=== PATIENT | female | born 1975 | race Caucasian/White ===

== ENCOUNTER → 2016-04-14 | Day surgery (SDC) | payer BC ==
[~2016-04-14] VITALS: Ht 172.7 cm; Wt 885.1 kg
[~2016-04-14] MED LIST: ACETAMINOPHEN 1000 MG/100 ML VIAL IV ONE; ACETAMINOPHEN/HYDROcodone 325 MG/5 MG TAB PO PRN; DEXAMETHASONE SOD PHOS 4 MG/ML VIAL ONE; DICLOFENAC SODIUM 37.5 MG/ML VIAL IV PUSH ONE; DO NOT ADM ANY ANTICOAGULANT DRUGS XX PRN; FAMOTIDINE 20 MG/2 ML VIAL ONE; INSULIN HUMAN REGULAR 1,000 UNITS/10 ML VIAL SQ PRN; LACTATED RINGER'S 1000 ML IV SCH; METOCLOPRAMIDE HCL 10 MG/2 ML VIAL ONE; METOPROLOL TARTRATE 25 MG TAB PO PRN; MIDAZOLAM HCL 2 MG/2 ML VIAL ONE; ONDANSETRON HCL 4 MG/2 ML VIAL IV PUSH ONE; PREN1TAB30 PO; PROPOFOL 200 MG/20 ML AMP IV ONE; SODIUM CHLORID 0.9% 500 ML IV SCH; [UNRECOGNIZED DRUG - REMARK] PO
[2016-04-14 12:38] VITALS: BP 152/91; PULSE 90; RESP 18; TEMP 98.1; O2SAT 100
[2016-04-14 13:04] LABS: BASOPHIL # 0.1 TH/MM3 (0-0.2); BASOPHIL % 0.6 % (0.0-2.0); EOSINOPHIL % 0.4 % (0.0-4.0); HEMATOCRIT 40.9 % (35.0-46.0); HEMO FLAGS DIFF FINAL; LYMPHOCYTE # 2.3 TH/MM3 (1.0-4.8); MEAN CELL VOLUME 87.1 FL (80.0-100.0); MEAN CORPUSCULAR HEMOGLOBIN 29.9 PG (27.0-34.0); MEAN CORPUSCULAR HGB CONC 34.3 % (32.0-36.0); MONO % 4.7 % (0.0-8.0); NEUT % 71.3 % (16.0-70.0); PLATELET COUNT 247 TH/MM3 (150-450); RED BLOOD COUNT 4.69 MIL/MM3 (4.00-5.30); WHITE BLOOD COUNT 9.8 TH/MM3 (4.0-11.0)
[2016-04-14 13:15] LABS: BACTERIA, URINE RARE /hpf; BLOOD, URINE MOD (NEG); COMMENT (UR) CULT NOT INDICATED; CULTURE IF INDICATED CULT NOT INDICATED; GLUCOSE,URINE NEG (NEG); KETONE, URINE NEG (NEG); NITRITE,URINE NEG (NEG); PH, URINE 7.5 (5.0-8.5); SQUAMOUS EPITHELIAL CELL URINE 1 /hpf (0-5); URINE COLOR LIGHT-YELLOW (YELLW/STRAW)
--- NOTE | 2016-04-17 08:57 | MP ---
cc: ARMANDO THOMAS DATE OF SURGERY 04/14/2016 PREOPERATIVE DIAGNOSIS Missed at 9 weeks. POSTOPERATIVE DIAGNOSIS Missed at 9 weeks. PROCEDURE Dilation and evacuation of the uterus. ANESTHESIA General. SURGEON Brandy Thomas MD FINDINGS On examination under anesthesia, the vagina was clean. The cervix had a small amount of blood in the os but was closed. the uterus was 8-10 weeks' size. The adnexa was negative for masses. Products of conception were normal in appearance. COMPLICATIONS None. COUNTS Correct. ESTIMATED BLOOD LOSS 100 cc. FLUIDS Crystalloids. CONDITION The patient tolerated the procedure well and went to the recovery room in good condition. OPERATION The patient was taken to the operating room, identified by name band and verbally, given a general anesthetic, prepped and draped in the usual sterile fashion for vaginal surgery. A time-out was taken and a weighted speculum was placed in the vagina. The anterior lip of the cervix was grasped with a single-tooth tenaculum after the exam under anesthesia was carried out. The cervix was serially dilated without difficulty and a #10 cannula was placed through the cervical os. The products of conception were removed from the uterus with gentle suction and a sharp curettage followed. The uterus was clean. She tolerated the procedure well and went to the recovery room in good condition. Brandy Thomas MD RJV/SSB /8:11 AM /8:52 AM
== END | disposition home or self-care (01) ==
LOC: HSDC 10:52
PROVIDERS: ATTEND Obstetrics & Gynecology
DX: O02.1 Missed abortion (principal)
CPT/HCPCS: 01965; 59820; 81001; 85025; 86900; 86901; 88305; J0131; J1100; J1130; J2250; J2405; J2765; J3010; J7120

== ENCOUNTER 2017-02-27 10:13 | Inpatient (IN) | payer BC ==
[2017-02-27] VITALS (32 sets, daily range): BP systolic 85–145; BP diastolic 38–88; PULSE 70–109; RESP 18–20; TEMP 97.4–98; O2SAT 98–100
[~2017-02-27] VITALS: Ht 152.4 cm; Wt 68.9 kg
[~2017-02-27 10:13] MED LIST changes: -ACETAMINOPHEN 1000 MG/100 ML VIAL IV ONE; -ACETAMINOPHEN/HYDROcodone 325 MG/5 MG TAB PO PRN; -DEXAMETHASONE SOD PHOS 4 MG/ML VIAL ONE; -DICLOFENAC SODIUM 37.5 MG/ML VIAL IV PUSH ONE; -DO NOT ADM ANY ANTICOAGULANT DRUGS XX PRN; -FAMOTIDINE 20 MG/2 ML VIAL ONE; -INSULIN HUMAN REGULAR 1,000 UNITS/10 ML VIAL SQ PRN; -LACTATED RINGER'S 1000 ML IV SCH; -METOCLOPRAMIDE HCL 10 MG/2 ML VIAL ONE; -METOPROLOL TARTRATE 25 MG TAB PO PRN; -MIDAZOLAM HCL 2 MG/2 ML VIAL ONE; -ONDANSETRON HCL 4 MG/2 ML VIAL IV PUSH ONE; -PROPOFOL 200 MG/20 ML AMP IV ONE; -SODIUM CHLORID 0.9% 500 ML IV SCH; -[UNRECOGNIZED DRUG - REMARK] PO
[2017-02-27] MEDS ORDERED: LACTATED RINGER'S 1000 ML INJ 1,000 ML IV PRN (10:53)
[2017-02-27] MEDS ORDERED: ONDANSETRON HCL 4 MG/2 ML VIAL IV PUSH PRN (11:00)
[2017-02-27] MEDS ORDERED: OXYTOCIN 30 UNITS-500ML PREMIX 500 ML IV ONE (11:00)
[2017-02-27] MEDS ORDERED: MINERAL OIL 10 ML VIAL TOPICAL PRN (11:00)
[2017-02-27] MEDS ORDERED: LIDOCAINE HCL 1% 50 ML VIAL I-DERMAL PRN (11:00)
[2017-02-27] MEDS ORDERED: CITRIC ACID-SODIUM CITRATE LIQ 30 ML UDC PO SCH (11:00)
[2017-02-27] MEDS ORDERED: LIDOCAINE HCL 1% 50 ML VIAL INFIL PRN (11:00)
[2017-02-27] MEDS ORDERED: SODIUM CHLORID 0.9% 500 ML INJ 500 ML IV PRN (11:00)
[2017-02-27] MEDS ORDERED: MISOPROSTOL 25 MCG SUPP VAGINAL ONE (11:00)
[2017-02-27] MEDS ORDERED: SODIUM CHLOR 0.9% 1000 ML INJ 1,000 ML IV PRN (11:13)
--- NOTE | 2017-02-27 11:16 | HHI.HP ---
History & Physical H&P HPI Chief Complaint Rupture of membranes Date Seen: Feb 27, 2017 Time Seen: 10:30 Travel History International Travel<30 Days: No Contact w/Intl Traveler<30Days: No Known Affected Area: No History of Present Illness HPI Ms. Dawson is a 41-year-old at 40 weeks and 3 days gestation presented OB ED with ruptured membranes. Patient was seen by Dr. Thomas this morning at roughly 9:45 and after checking her she had a gush of clear/mucous-like fluid. She presented to the OB ED and was Amnisure positive. Patient reports normal spotting, no changes in movement, and had no contractions prior to presentation. Otherwise patient has had no complications during this . She reports being GBS negative, and having no prior medical history before this . Denies fever, chills, shortness of breath, chest pain, dysuria, nausea vomiting, History (Limited) History Past Medical History Medical History: Denies Significant Hx Obstetric History Obstetric History Patient had an at age 21. Had a miscarriage in April 2016 Reports no complications during this Past Surgical History Surgical History: No Previous Surgery Family History Narrative Family History Polycystic kidney disease in mother No other medical problems Social History Narrative Social History Lives at home with her . Has had roughly 5 alcoholic beverages during the entire (well spaced out) Former smoker quit 9 years ago No illicit drug use Allergies-Medications Allergies-Medications (Allergen,Severity, Reaction): Coded Allergies: No Known Allergies (Unverified , 01/04/12) Home Meds Reported Medications Vit W/ Ferrous Fumara ( Vitamin 27-0.8 mg) 1 Tab Tab, 1 TAB PO DAILY 04/14/16 ROS Review of Systems Except as stated in HPI: all other systems reviewed are Neg Physical Exam Physical Exam Narrative GENERAL: Well-nourished, well-developed patient. SKIN: Warm and dry. HEAD: Normocephalic and atraumatic. EYES: No scleral icterus. No injection or drainage. ENT: No nasal drainage noted. Mucous membranes pink. Airway patent. NECK: Supple, trachea midline. No JVD. CARDIOVASCULAR: Regular rate and rhythm without murmurs, gallops, or rubs. RESPIRATORY: Breath sounds equal bilaterally. No accessory muscle use. ABDOMEN/GI: Abdomen soft, non-tender, bowel sounds present, no rebound, no guarding Gravid to 40 weeks size GENITOURINARY: External Genitalia: intact and normal in appearance Cervix: Midposition Dilatation: 1 cm Effacement: To percent Station: -1 Presentation: Cephalic Membranes: Ruptured Uterine Contractions: 3 contractions noted in a 30 minute period FHT's: Category: 1 Baseline: 140 Reactive: Yes Variability: Moderate Decels: Absent EXTREMITIES: No cyanosis or edema. BACK: Nontender without obvious deformity. No CVA tenderness. NEUROLOGICAL: Awake and alert. Motor and sensory grossly within normal limits. Five out of 5 muscle strength in all muscle groups. Normal speech. Data Data Data Orders Orders Ob (2e) Additional Admit Info (02/27/17 10:39) Admit To Inpatient (02/27/17 ) Code Status (02/27/17 10:53) Vital Signs (Adult) .Per protocol (02/27/17 10:53) Activity Oob Ad Danielle (02/27/17 10:53) Heart (02/27/17 10:53) Amnioinfusion (02/27/17 10:53) Urinary Catheter Management .ONCE (02/27/17 10:53) Diet Liquid (02/27/17 Lunch) Lactated Ringer's 1000 Ml Inj (Lr 1000 M (02/27/17 10:53) Lactated Ringer's 1000 Ml Inj (Lr 1000 M (02/27/17 10:53) Sodium Chlorid 0.9% 500 Ml Inj (Ns 500 M (02/27/17 11:00) Sodium Chlor 0.9% 1000 Ml Inj (Ns 1000 M (02/27/17 11:13) Lidocaine 1% Inj (50 Ml) (Xylocaine 1% I (02/27/17 11:00) Citric Acid-Sodium Citrate Liq (Bicitra (02/27/17 11:00) Ondansetron Inj (Zofran Inj) (02/27/17 11:00) Fentanyl Inj (Fentanyl Inj) (02/27/17 11:00) Fentanyl Inj (Fentanyl Inj) (02/27/17 11:00) Complete Blood Count With Diff (02/27/17 10:53) Hold Clot (02/27/17 10:53) Abo/Rh Blood Type (02/27/17 10:53) Urinalysis - C+S If Indicated (02/27/17 10:53) Drug Screen, Random Urine (02/27/17 10:53) Type And Screen (02/27/17 10:53) Resp Oxygen Non Rebreathe Mask (02/27/17 ) ^ Epidural / Intrathecal Infus (02/27/17 10:53) Oxytocin 30 Units-500ml Premix (Pitocin (02/27/17 11:00) Lidocaine 1% Inj (50 Ml) (Xylocaine 1% I (02/27/17 11:00) Light Mineral Oil (Muri-Lube Oil) (02/27/17 11:00) Inpatient Certification (02/27/17 ) Specimen To Be Collected PRN (02/27/17 10:53) Specimen To Be Collected PRN (02/27/17 10:53) Misoprostol Supp (Cytotec Supp) (02/27/17 11:00) Misoprostol Supp (Cytotec Supp) (02/27/17 15:00) MDM MDM Plan 41-year-old at 40 weeks and 3 days gestation followed by presenting to the ED with with rupture of membranes. Patient being admitted for impending labor and delivery 1. Rupture of membranes -Reported rupture at 0945 on the morning of 02/[address] Thomas office. -Amnisure positive on admission -Category 1 tracing on admission, will continue to monitor -Patient denying fevers or chills -GBS negative -Patient is 1 cm dilated, 20% effacement, -1 station -Spoke with Dr. Thomas's nurse who recommended Cytotec placement at this time -We will give Cytotec 25 g vaginal once now, and another dose in 4 hours if needed -Starting lactated Ringer's for IV fluids -Ordering CBC, UDS, UA Discussed with Dr. Silva Diagnosis Diagnosis: Primary Impression: Rupture of membranes with clear amniotic fluid Refugio Penny MD R1 Feb 27, 2017 11:15 Refugio Penny MD R1 Feb 27, 2017 11:15
[2017-02-27] MEDS: LACTATED RINGER'S 1000 ML INJ 1,000 ML IV SCH ×2 (12:19→19:36)
[2017-02-27 12:23] LABS: AUTOMATED NEUTROPHIL # 8.3 TH/MM3 (1.8-7.7); BASOPHIL % 0.2 % (0.0-2.0); EOSINOPHIL % 0.2 % (0.0-4.0); HEMATOCRIT 38.1 % (35.0-46.0); HEMO FLAGS DIFF FINAL; LYMPH % 12.3 % (9.0-44.0); LYMPHOCYTE # 1.3 TH/MM3 (1.0-4.8); MEAN CELL VOLUME 87.8 FL (80.0-100.0); MEAN CORPUSCULAR HEMOGLOBIN 29.6 PG (27.0-34.0); MEAN CORPUSCULAR HGB CONC 33.8 % (32.0-36.0); MONO % 6.5 % (0.0-8.0); NEUT % 80.8 % (16.0-70.0); PLATELET COUNT 118 TH/MM3 (150-450); RED BLOOD COUNT 4.34 MIL/MM3 (4.00-5.30); RED CELL DISTRIBUTION WIDTH 14.1 % (11.6-17.2); WHITE BLOOD COUNT 10.2 TH/MM3 (4.0-11.0)
[2017-02-27 12:32] LABS: BACTERIA, URINE MOD /hpf; BLOOD, URINE LARGE (NEG); COMMENT (UR) CULTURE INDICATED; CULTURE IF INDICATED CULTURE INDICATED; GLUCOSE,URINE NEG (NEG); KETONE, URINE NEG (NEG); MUCUS URINE FEW /lpf (OCC); NITRITE,URINE NEG (NEG); SQUAMOUS EPITHELIAL CELL URINE 32 /hpf (0-5); URINE COLOR LIGHT-YELLOW (YELLW/STRAW)
[2017-02-27] MEDS ORDERED: OXYTOCIN 30 UNITS-500ML PREMIX 500 ML IV SCH (13:45)
[2017-02-27] MEDS ORDERED: MISOPROSTOL 25 MCG SUPP VAGINAL PRN (15:00)
[2017-02-27] MEDS ORDERED: ePHEDrine/NS 25 MG/5 ML SYR ONE (20:49)
[2017-02-27] MEDS ORDERED: fentaNYL 2MCG-BUPIV 0.125% INJ 100 ML ONE (20:49)
[2017-02-27] MEDS ORDERED: MEPERIDINE HCL 50 MG/ML VIAL IV PUSH ONE (21:15)
[2017-02-27] MEDS ORDERED: DO NOT ADMINISTER ANTICOAGULANTS PRN (23:00)
[2017-02-27] MEDS ORDERED: NO SYSTEM NARCOTICS PRN (23:00)
[2017-02-27] MEDS ORDERED: ePHEDrine/NS 25 MG/5 ML SYR IV PUSH PRN (23:00)
[2017-02-28] VITALS (61 sets, daily range): BP systolic 94–151; BP diastolic 43–96; PULSE 70–109; RESP 15–22; TEMP 89–98; O2SAT 99–100
[2017-02-28] MEDS: fentaNYL 2MCG-BUPIV 0.125% 100 ML EPIDURAL SCH ×2 (00:07→04:47)
[2017-02-28] MEDS: LACTATED RINGER'S 1000 ML INJ 1,000 ML IV SCH (04:47)
[2017-02-28] MEDS ORDERED: ACETAMINOPHEN 1000 MG/100 ML 100 ML IV ONE ×2 (07:10→09:00)
[2017-02-28] MEDS ORDERED: DEXAMETHASONE SOD PHOS 4 MG/ML VIAL ONE (08:58)
[2017-02-28] MEDS ORDERED: ROPIVACAINE 0.5% PF INJ 30 ML VIAL ONE (08:58)
[2017-02-28] MEDS ORDERED: OXYTOCIN 30 UNITS-500ML PREMIX 500 ML IV ONE ×2 (09:00)
[2017-02-28] MEDS ORDERED: SODIUM CHLORIDE 0.9% FLUSH 10 ML FLUSH IV FLUSH PRN (09:00)
[2017-02-28] MEDS: SODIUM CHLORIDE 0.9% FLUSH 10 ML FLUSH IV FLUSH SCH ×2 (09:00→21:00)
[2017-02-28] MEDS ORDERED: oxyCODONE/ACETAMINOPHEN 5 MG/325 MG TAB PO PRN (09:00)
[2017-02-28] MEDS ORDERED: ONDANSETRON HCL 4 MG/2 ML VIAL IV PUSH PRN (10:00)
[2017-02-28] MEDS ORDERED: SIMETHICONE 80 MG CHEWABLE TAB PO PRN (10:00)
--- NOTE | 2017-02-28 11:25 | HHI.DCPOC ---
Discharge Care Plan Diagnosis: (1) S/P primary low transverse Your Health Problems Are: delivery Report Symptoms to Your Doctor -Temperature above 100.5 degrees -Redness, of incision or excessive or foul smelling drainage -Unusual pain or calf pain -Increased vaginal bleeding -Painful or difficulty urinating -Feelings of extreme sadness or anxiety after 2 weeks Goals to Promote Your Health * To prevent worsening of your condition and complications * To maintain your health at the optimal level Directions to Meet Your Goals Take your medications as prescribed Follow your dietary instruction Follow activity as directed Ensure plenty of rest for recovery Drink fluids for hydration Keep your appointments as scheduled Take your immunizations and boosters as scheduled If your symptoms worsen call your PCP, if no PCP go to Urgent Care Center or Emergency Room Smoking is Dangerous to Your Health. Avoid second hand smoke Call the 24-hour crisis hotline for domestic abuse at Cynthia Caputo Feb 28, 2017 11:25
[2017-02-28] MEDS ORDERED: LACTATED RINGER'S 1000 ML INJ 1,000 ML IV SCH (13:56)
--- NOTE | 2017-02-28 14:39 | PD.OB.DELI ---
Procedure Note Section Procedure Pre Op Diagnosis: (1) Arrest of descent, delivered, current hospitalization Post Op Diagnosis: (1) Arrest of descent, delivered, current hospitalization Performed by Marcus Thomas Procedure: Primary Low Transverse Sec Indication for delivery: Other Previous condition: None Informed consent obtained: For anesthesia, For procedure Confirmed correct: Patient, Procedure, Site, Time-out taken Anesthesia: Epidural Medication prior to procedure: As documented in eMAR Monitoring during procedure: Blood pressure monitoring Urinary catheter: Inserted using sterile technique Sterile preparation: Duraprep Position: Supine with wedge to left side Operative Features Skin Incision: Transverse Uterine Incision: Low transverse w/knife / blunt ext Membranes Ruptured: Previously Presentation: Occiput posterior Delivery date: Feb 28, 2017 Delivery time: 08:10 Delivery of infant: Assisted, Uneventful Infant: Male One Minute : 8 Five Minute : 9 Weight: 8/10 Status of : Viable, Cord blood Placenta delivered: Intact Medications: Antibiotics, Oxytocin Estimated blood loss: 500 Procedure tolerated: Well Maternal Condition: Stable Procedure in detail The patient was taken to the operating room. After appropriate level anesthesia , she was placed in the supine position. Intermittent compression hoses were placed. Wood catheter was placed, and was draining adequate clear urine. The abdomen was prepped, and draped in the usual sterile fashion. A transverse incision was made through the skin, and carried down through the subcutaneous tissue. The fascia was opened transversely. from the rectus muscles in the midline. The rectus muscles were , and the abdominal cavity was entered. The bladder flap was taken down transversely. A low segment transverse incision was made into the lower uterine segment. The vertex was then delivered. The remainder of the body was then delivered. Cord was doubly clamped and cut. And the handed off to the waiting nurse and staff. The placenta was then manually removed. The uterus was cleaned of excess blood and debris. The uterine incision was then closed using 0 vicryl in a continuous interlocking stitch. This stitch line was then imbricated also using 0 vicryl. Tubes and ovaries were inspected and found to be normal. The uterus which had been previously exteriorized, was placed back into the abdomen. The paracolic gutters were cleaned of excess blood and debris. The incision was inspected and found to be dry. The peritoneal cavity was then closed using 2-0 chromic suture. The muscle bed was inspected and found to be dry. The fascia was then closed using 0 Vicryl suture. The subcutaneous tissue was irrigated. Bleeders were controlled with Bovie. There was no active bleeding. The incision was then closed using in a subcuticular fashion with 4- 0 Monocryl. A dressing was applied. The patient was then transferred to the recovery room in stable condition. Brandy Thomas MD Feb 28, 2017 14:39
[2017-02-28] MEDS ORDERED: OXYC1TAB63 PO (15:36)
[2017-02-28] MEDS ORDERED: IBUP-232 PO (15:36)
[2017-02-28] MEDS ORDERED: OXYTOCIN 30 UNITS-500ML PREMIX 500 ML IV PRN (19:00)
[2017-02-28] MEDS ORDERED: ZOLPIDEM TARTRATE 5 MG TAB PO PRN (21:00)
[2017-02-28] MEDS: IBUPROFEN 600 MG TAB PO PRN (21:05)
[2017-03-01 00:30] VITALS: BP 135/79; PULSE 70; RESP 18; TEMP 98
[2017-03-01 02:01] VITALS: RESP 16
[2017-03-01] MEDS: IBUPROFEN 600 MG TAB PO PRN ×4 (05:18→22:12)
[2017-03-01 05:57] LABS: AUTOMATED NEUTROPHIL # 12.2 TH/MM3 (1.8-7.7); BASOPHIL % 0.1 % (0.0-2.0); EOSINOPHIL % 0.2 % (0.0-4.0); HEMATOCRIT 31.9 % (35.0-46.0); HEMO FLAGS DIFF FINAL; LYMPH % 11.2 % (9.0-44.0); LYMPHOCYTE # 1.6 TH/MM3 (1.0-4.8); MEAN CELL VOLUME 88.2 FL (80.0-100.0); MEAN CORPUSCULAR HEMOGLOBIN 30.3 PG (27.0-34.0); MEAN CORPUSCULAR HGB CONC 34.3 % (32.0-36.0); MONO % 5.5 % (0.0-8.0); PLATELET COUNT 111 TH/MM3 (150-450); RED BLOOD COUNT 3.62 MIL/MM3 (4.00-5.30); RED CELL DISTRIBUTION WIDTH 14.3 % (11.6-17.2); WHITE BLOOD COUNT 14.7 TH/MM3 (4.0-11.0)
[2017-03-01 08:30] VITALS: BP 138/82; PULSE 64; RESP 16; TEMP 97.9
--- NOTE | 2017-03-01 08:38 | HHI.OB ---
Subjective Post Operative Day: 1 Remarks s/p primary LTCD for arrest, healthy male Objective Vitals/I&O Vital Signs Date Time Temp Pulse Resp B/P (MAP) Pulse Ox O2 Delivery O2 Flow Rate FiO2 03/01/17 02:01 16 03/01/17 00:30 70 18 135/79 (97) 03/01/17 00:30 98.0 02/28/17 23:30 18 02/28/17 21:00 98.0 81 18 143/83 (103) 02/28/17 14:45 151/96 (114) 02/28/17 11:00 97.6 80 20 148/81 (103) 99 02/28/17 10:15 76 18 134/76 (95) 100 02/28/17 10:00 74 18 135/66 (89) 99 02/28/17 09:45 79 18 131/60 (83) 99 02/28/17 09:30 76 18 122/60 (80) 02/28/17 09:30 99 02/28/17 09:15 80 18 137/77 (97) 02/28/17 09:15 99 02/28/17 09:15 97.6 Result Diagram: 03/01/17 0552 Objective Remarks GENERAL: Well-nourished, well-developed patient. CARDIOVASCULAR: Regular rate and rhythm without murmurs, gallops, or rubs. RESPIRATORY: Breath sounds equal bilaterally. No accessory muscle use. ABDOMEN/GI: Abdomen soft, non-tender, bowel sounds present. Incision: Clean, dry and intact. bandage in place Fundus: Firm, non-tender at umbilicus. GENITOURINARY: Light to moderate bleeding. EXTREMITIES: No cyanosis or edema, non-tender, without signs of DVT. Medications and IVs Current Medications Medications (Trade) Dose Ordered Sig/Martin Route Start Time Stop Time Status Last Admin Lactated Ringer's 1,000 ml @ 100 mls/hr Q10H IV 02/28/17 13:56 03/01/17 09:55 02/28/17 16:13 Oxytocin 500 ml @ 100 mls/hr UNSCH X1 PRN IV 02/28/17 19:00 03/01/17 18:59 (NS Flush) 2 ml BID IV FLUSH 02/28/17 09:00 (NS Flush) 2 ml UNSCH PRN IV FLUSH 02/28/17 09:00 (Mylicon Chew) 80 mg QID PRN PO 02/28/17 10:00 (Motrin) 600 mg Q6H PRN PO 02/28/17 09:00 03/01/17 05:18 (Percocet 5-325 Mg) 1 tab Q4H PRN PO 02/28/17 09:00 (Percocet 5-325 Mg) 2 tab Q4H PRN PO 02/28/17 09:00 (Maria Victoria-Colace) 2 tab Q12HR PRN PO 02/28/17 10:00 (Ambien) 5 mg HS PRN PO 02/28/17 21:00 (M-M-R Ii Inj) 0.5 ml ONCE ONCE SQ 03/01/17 16:00 03/01/17 16:01 (Boostrix Inj) 0.5 ml ONCE ONCE IM 03/01/17 16:00 03/01/17 16:01 02/28/17 21:10 (Zofran Inj) 4 mg Q6H PRN IV PUSH 02/28/17 10:00 Non-Formulary Medication 1 tab DAILY PO 02/28/17 09:00 UNV Assessment/Plan Problem List: (1) S/P primary low transverse ICD Codes: Z98.891 - History of uterine scar from previous surgery Status: Acute (2) Arrest of descent, delivered, current hospitalization 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
[2017-03-01] MEDS ORDERED: PERI PO (08:39)
[2017-03-01] MEDS: DOCUSATE SODIUM 50 MG/SENNA 8.6 MG TAB PO PRN (10:38)
[2017-03-01] MEDS: PRENATAL VITAMIN CHEWABLE TAB PO SCH (10:38)
[2017-03-01] MEDS: oxyCODONE/ACETAMINOPHEN 5 MG/325 MG TAB PO PRN ×3 (10:39→22:12)
[2017-03-01] MEDS ORDERED: MEASLES, MUMPS, RUBELLA VACCINE 0.5 ML VIAL SQ ONE (16:00)
[2017-03-01] MEDS ORDERED: DIPHTH/TETANUS/ACEL PERTUSSIS (BOOSTER) 0.5 ML VIAL/PFS IM ONE (16:00)
[2017-03-01 21:30] VITALS: BP 148/96; PULSE 77; RESP 20; TEMP 98.2
[2017-03-02] MEDS: IBUPROFEN 600 MG TAB PO PRN (04:29)
[2017-03-02] MEDS: oxyCODONE/ACETAMINOPHEN 5 MG/325 MG TAB PO PRN ×2 (04:30→08:41)
--- NOTE | 2017-03-02 08:04 | HHI.OB ---
Subjective Post Operative Day: 2 Objective Vitals/I&O Vital Signs Date Time Temp Pulse Resp B/P (MAP) Pulse Ox O2 Delivery O2 Flow Rate FiO2 03/01/17 21:30 98.2 77 20 148/96 (113) 03/01/17 11:39 16 03/01/17 11:39 16 03/01/17 08:30 97.9 64 16 138/82 (100) Result Diagram: 03/01/17 0552 Objective Remarks GENERAL: Well-nourished, well-developed patient. CARDIOVASCULAR: Regular rate and rhythm without murmurs, gallops, or rubs. RESPIRATORY: Breath sounds equal bilaterally. No accessory muscle use. ABDOMEN/GI: Abdomen soft, non-tender, bowel sounds present. Incision: Clean, dry and intact. Fundus: Firm, non-tender at umbilicus. GENITOURINARY: Light bleeding. EXTREMITIES: No cyanosis or edema, non-tender, without signs of DVT. Medications and IVs Current Medications Medications (Trade) Dose Ordered Sig/Martin Route Start Time Stop Time Status Last Admin (NS Flush) 2 ml BID IV FLUSH 02/28/17 09:00 (NS Flush) 2 ml UNSCH PRN IV FLUSH 02/28/17 09:00 (Mylicon Chew) 80 mg QID PRN PO 02/28/17 10:00 (Motrin) 600 mg Q6H PRN PO 02/28/17 09:00 03/02/17 04:29 (Percocet 5-325 Mg) 1 tab Q4H PRN PO 02/28/17 09:00 03/02/17 04:30 (Percocet 5-325 Mg) 2 tab Q4H PRN PO 02/28/17 09:00 (Maria Victoria-Colace) 2 tab Q12HR PRN PO 02/28/17 10:00 03/01/17 10:38 (Ambien) 5 mg HS PRN PO 02/28/17 21:00 (Zofran Inj) 4 mg Q6H PRN IV PUSH 02/28/17 10:00 Non-Formulary Medication 1 tab DAILY PO 02/28/17 09:00 UNV Assessment/Plan Problem List: (1) S/P primary low transverse ICD Codes: Z98.891 - History of uterine scar from previous surgery Status: Acute (2) Arrest of descent, delivered, current hospitalization 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 Thomas; will call office Sunday d/c to home Discharge Planning routine Ami Jimenez MD Mar 02, 2017 08:04
[2017-03-02] MEDS: PRENATAL VITAMIN CHEWABLE TAB PO SCH (08:40)
[2017-03-02] MEDS: DOCUSATE SODIUM 50 MG/SENNA 8.6 MG TAB PO PRN (08:41)
== END 2017-03-02 11:54 | disposition home or self-care (01) | DRG 766 ==
LOC: HOBED 10:13 → H2EB 10:42 → H1EA 02-28 10:55
PROVIDERS: ADMIT Obstetrics & Gynecology; ATTEND Obstetrics & Gynecology
PROC: 10D00Z1 Extraction of Products of Conception, Low, Open Approach (ICD-10-PCS; principal; 2017-02-27)
PROC: 3E0R3BZ Introduction of Anesthetic Agent into Spinal Canal, Percutaneous Approach (ICD-10-PCS; 2017-02-27)
PROC: 00HU33Z Insertion of Infusion Device into Spinal Canal, Percutaneous Approach (ICD-10-PCS; 2017-02-27)
DX: O62.1 Secondary uterine inertia (principal); Z87.891 Personal history of nicotine dependence; Z37.0 Single live birth; Z3A.40 40 weeks gestation of pregnancy
CPT/HCPCS: 59025; 80307; 81001; 84112; 85025; 86850; 86900; 86901; 87086; 90715; J0131; J0690; J1100; J2175; J2405; J2590; J2795; J3010; J7120

== ENCOUNTER 2017-03-07 14:38 | Observation (INO) | payer BC ==
[~2017-03-07] VITALS: Ht 172.7 cm; Wt 92.0 kg
[~2017-03-07 14:38] MED LIST changes: +IBUP-232 PO; +OXYC1TAB63 PO; +PERI PO
[2017-03-07] MEDS ORDERED: SODIUM CHLORIDE 0.9% FLUSH 10 ML FLUSH IV FLUSH PRN (15:00)
[2017-03-07] MEDS ORDERED: ONDANSETRON HCL 4 MG/2 ML VIAL IV PUSH PRN (15:00)
[2017-03-07] MEDS ORDERED: MAGNESIUM SULFATE 4 GM PREMIX 100 ML IV ONE (15:00)
[2017-03-07] MEDS ORDERED: CALCIUM GLUCONATE 10% 1 GM/10 ML VIAL IV PUSH PRN (15:00)
[2017-03-07] MEDS ORDERED: LABETALOL HCL 100 MG/20 ML VIAL IV PUSH PRN ×2 (15:00→15:15)
--- NOTE | 2017-03-07 15:22 | HHI.HP ---
HPI Chief Complaint Postop and severe hypertension Date Seen: Mar 07, 2017 Time Seen: 15:40 Travel History International Travel<30 Days: No Contact w/Intl Traveler<30Days: No Known Affected Area: No History of Present Illness HPI Patient is 41-year-old white female A2 who is one-week status post a C- section by Dr. Thomas for arrest of descent and had a normal postoperative and course her last blood pressure on her discharge day was 146/92 but otherwise all her blood pressures within normal limits and she has no history of hypertension prior to or during her , however today she presents to Dr. Thomas's office with a blood pressure in the 180s/110s she has no headache blurry vision spots in front of her eyes right upper quadrant pain and her swelling she had her legs is better now than it was when she was in the hospital Para: 1 : 3 Last Menstrual Period: Mar 07, 2017 Miscarriage: 2 : 0 History Past Medical History Narrative Medical Patient has a negative medical history no history of hypertension and thyroid disease diabetes Obstetric History Obstetric History 2 early losses and one with [address] Thomas Past Surgical History Narrative Surgical Family History Family History: Social History Alcohol Use: Yes Tobacco Use: No Substance Abuse: No Allergies-Medications (Allergen,Severity, Reaction): Coded Allergies: No Known Allergies (Unverified , 01/04/12) Home Meds Active Scripts Sennosides-Docusate Sodium (Gnp Senna Plus 8.6-50 mg) 8.6 Mg-50 Mg Tab, 1 TAB PO Q12HR Y for CONSTIPATION, #20 TAB 1 Refill Prov:Ami Jimenez MD 03/01/17 Oxycodone HCl/Acetaminophen (Oxycodone-Acetaminophen 5-325) 5 Mg-325 Mg Tablet, 1-2 TAB PO Q4H Y for moderate pain, #30 TAB Prov:Brandy Thomas MD 02/28/17 Ibuprofen (Ibuprofen) 600 Mg Tab, 600 MG PO Q6H Y for CRAMPING, #30 TAB Prov:Brandy Thomas MD 02/28/17 Reported Medications Vit W/ Ferrous Fumara ( Vitamin 27-0.8 mg) 1 Tab Tab, 1 TAB PO DAILY 04/14/16 Review of Systems General / Constitutional: No: Fever, Weight Gain, Chills, Other Eyes: No: Diploplia, Blurred Vision, Visual changes, Pain, Photophobia HENT: No: Headaches, Vertigo, Lightheadedness Cardiovascular: No: Irregular Rhythm, Chest Pain or Discomfort, Palpitations, Tachycardia, Syncope, Varicosities, Edema, Cyanosis Respiratory: No: Cough, Short of Breath, Other Gastrointestinal: No: Nausea, Vomiting, Diarrhea Genitourinary: No: Decreased Urinary Output, Oliguria Musculoskeletal: No: Limited ROM, Weakness, Cramping, Edema, Pain Skin: No Rash, No Itching, No Dryness, No Lumps, No Change in Pigmentation, No Change in Nails, No Alopecia, No Lesions Neurologic: No: Weakness, Dizziness, Syncope, Focal Abnormalities, Coordination Problem, Headache, Slurred Speech, Seizures Psychiatric: No: Depression, Suicidal Ideations, Homicidal Ideation Endocrine: No: Heat Intolerance, Cold Intolerance, Polydipsia, Polyuria, Other Physical Exam Narrative GENERAL: Well-nourished, well-developed patient. SKIN: Warm and dry. HEAD: Normocephalic and atraumatic. EYES: No scleral icterus. No injection or drainage. ENT: No nasal drainage noted. Mucous membranes pink. Airway patent. NECK: Supple, trachea midline. No JVD. No goiter CARDIOVASCULAR: Regular rate and rhythm without murmurs, gallops, or rubs. RESPIRATORY: Breath sounds equal bilaterally. No accessory muscle use. BREASTS: Bilateral exam showed no masses , no retractions, no nipple discharge. ABD--non tender nondistended normal bowel sounds noted C section incision well -healed EXTREMITIES: No cyanosis or edema. BACK: Nontender without obvious deformity. No CVA tenderness. NEUROLOGICAL: Awake and alert. Motor and sensory grossly within normal limits. Five out of 5 muscle strength in all muscle groups. Normal speech. DTRs 2+ Caprini VTE Risk Assessment Caprini VTE Risk Assessment: No/Low Risk (score <= 1) Caprini Risk Assessment Model Point Value = 1 Point Value = 2 Point Value = 3 Point Value = 5 Age 41-60 Minor surgery BMI > 25 kg/m2 Swollen legs Varicose veins or History of unexplained or recurrent spontaneous Oral contraceptives or hormone replacement Sepsis (< 1 month) Serious lung disease, including pneumonia (< 1 month) Abnormal pulmonary function Acute myocardial infarction Congestive heart failure (< 1 month) History of inflammatory bowel disease Medical patient at bed rest Age 61-74 Arthroscopic surgery Major open surgery (> 45 min) Laparoscopic surgery (> 45 min) Malignancy Confined to bed (> 72 hours) Immobilizing plaster cast Central venous access Age >= 75 History of VTE Family history of VTE Factor V Leiden Prothrombin [id number] Lupus anticoagulant Anticardiolipin antibodies Elevated serum homocysteine Heparin-induced thrombocytopenia Other congenital or acquired thrombophilia Stroke (< 1 month) Elective arthroplasty Hip, pelvis, or leg fracture Acute spinal cord injury (< 1 month) Prophylaxis Regimen Total Risk Factor Score Risk Level Prophylaxis Regimen 0-1 Low Early ambulation 2 Moderate Order ONE of the following: *Sequential Compression Device (SCD) *Heparin 5000 units SQ BID 3-4 Higher Order ONE of the following medications: *Heparin 5000 units SQ TID *Enoxaparin/Lovenox 40 mg SQ daily (WT < 150 kg, CrCl > 30 mL/min) *Enoxaparin/Lovenox 30 mg SQ daily (WT < 150 kg, CrCl > 10-29 mL/min) *Enoxaparin/Lovenox 30 mg SQ BID (WT < 150 kg, CrCl > 30 mL/min) AND/OR *Sequential Compression Device (SCD) 5 or more Highest Order ONE of the following medications: *Heparin 5000 units SQ TID (Preferred with Epidurals) *Enoxaparin/Lovenox 40 mg SQ daily (WT < 150 kg, CrCl > 30 mL/min) *Enoxaparin/Lovenox 30 mg SQ daily (WT < 150 kg, CrCl > 10-29 mL/min) *Enoxaparin/Lovenox 30 mg SQ BID (WT < 150 kg, CrCl > 30 mL/min) AND *Sequential Compression Device (SCD) Data Data Orders Orders Place In Observation (03/07/17 ) Activity Bed Rest (03/07/17 14:56) Intake + Output Q1H (03/07/17 14:56) Notify Dr. Cleary (03/07/17 14:56) Urinary Catheter Management YOGESH.Q8H (03/07/17 14:56) ^ Check Deep Tendon Reflexes Q1H (03/07/17 14:56) Lactated Ringer's 1000 Ml Inj (Lr 1000 M (03/07/17 14:56) Sodium Chloride 0.9% Flush (Ns Flush) (03/07/17 15:00) Sodium Chloride 0.9% Flush (Ns Flush) (03/07/17 21:00) Magnesium Sulfate 40 Gm Premix (Magnesiu (03/07/17 14:56) Labetalol Inj (Trandate Inj) (03/07/17 15:00) Labetalol Inj (Trandate Inj) (03/07/17 15:15) Calcium Gluconate Inj (Calcium Gluconate (03/07/17 15:00) Acetaminophen (Tylenol) (03/07/17 15:00) Ondansetron Inj (Zofran Inj) (03/07/17 15:00) Cbc No Diff, Includes Plts (03/07/17 14:56) Comprehensive Metabolic Panel (03/07/17 14:56) Uric Acid (03/07/17 14:56) Urinalysis - C+S If Indicated (03/07/17 14:56) Magnesium Sulfate 4 Gm Premix (Magnesium (03/07/17 15:00) Assessment/Plan Assessment and Plan 41-year-old white female A2 1 week out from the section Dr. Thomas for arrest of descent presents now with postoperative severe hypertension and the patient is no history of hypertensive disease in or out of . Her blood pressures in the 170-180/100 110 range in the emergency room doctor Sugey office and here on OB ED she has no other signs or symptoms of preeclampsia Impression--severe hypertension postop/ Plan--admit and begin the severe hypertensive for protocol with IV magnesium, we 'll draw PIH labs and urinalysis, and begin antihypertensive medication Rey Faust II, MD Mar 07, 2017 15:21
[2017-03-07] MEDS ORDERED: FUROSEMIDE 20 MG/2 ML VIAL IV PUSH ONE (16:15)
[2017-03-07 16:29] LABS: HEMATOCRIT 35.9 % (35.0-46.0); MEAN CELL VOLUME 88.9 FL (80.0-100.0); MEAN CORPUSCULAR HEMOGLOBIN 29.2 PG (27.0-34.0); MEAN CORPUSCULAR HGB CONC 32.8 % (32.0-36.0); PLATELET COUNT 302 TH/MM3 (150-450); RED BLOOD COUNT 4.03 MIL/MM3 (4.00-5.30); RED CELL DISTRIBUTION WIDTH 14.3 % (11.6-17.2); REVIEW FLAG FINAL; WHITE BLOOD COUNT 9.2 TH/MM3 (4.0-11.0)
[2017-03-07] MEDS: LACTATED RINGER'S 1000 ML INJ 1,000 ML IV SCH (16:38)
[2017-03-07] MEDS: MAGNESIUM SULFATE 40 GM PREMIX 1,000 ML IV SCH (16:39)
[2017-03-07 16:55] LABS: ALT (GPT) 46 U/L (10-53); ANION GAP 8 MEQ/L (5-15); AST (GOT) 26 U/L (15-37); BICARBONATE 27.2 MEQ/L (21.0-32.0); BLOOD UREA NITROGEN 12 MG/DL (7-18); CHLORIDE 105 MEQ/L (98-107); GLOMERULAR FILTRATION RATE 73 ML/MIN (>89); POTASSIUM 4.5 MEQ/L (3.5-5.1); SODIUM (NA) 140 MEQ/L (136-145); URIC ACID 8.6 MG/DL (2.6-6.0)
[2017-03-07 16:57] LABS: ALKALINE PHOSPHATASE 123 U/L (45-117); TOTAL BILIRUBIN ADULT 0.2 MG/DL (0.2-1.0)
[2017-03-07] MEDS ORDERED: LABETALOL HCL 100 MG/20 ML VIAL ONE (17:10)
[2017-03-07] MEDS ORDERED: NIFEdipine 30 MG SUSTAINED RELEASE TAB PO ONE (17:30)
[2017-03-07] MEDS ORDERED: ZOLPIDEM TARTRATE 5 MG TAB PO PRN (17:30)
[2017-03-07 17:56] LABS: BLOOD, URINE NEG (NEG); COMMENT (UR) CULT NOT INDICATED; CULTURE IF INDICATED CULT NOT INDICATED; GLUCOSE,URINE NEG (NEG); KETONE, URINE NEG (NEG); NITRITE,URINE NEG (NEG); URINE COLOR LIGHT-YELLOW (YELLW/STRAW)
[2017-03-07] MEDS ORDERED: LABETALOL HCL 100 MG/20 ML VIAL IV PUSH ONE ×2 (18:15)
[2017-03-07] MEDS ORDERED: IBUPROFEN 600 MG TAB PO PRN (18:45)
[2017-03-07] MEDS: SODIUM CHLORIDE 0.9% FLUSH 10 ML FLUSH IV FLUSH SCH (21:00)
[2017-03-07] MEDS: ACETAMINOPHEN 325 MG TAB PO PRN (21:54)
[2017-03-08] MEDS: ACETAMINOPHEN 325 MG TAB PO PRN ×2 (08:35→14:35)
[2017-03-08] MEDS: LACTATED RINGER'S 1000 ML INJ 1,000 ML IV SCH (08:36)
[2017-03-08] MEDS: NIFEdipine 30 MG SUSTAINED RELEASE TAB PO SCH ×2 (08:36→09:00)
[2017-03-08] MEDS: SODIUM CHLORIDE 0.9% FLUSH 10 ML FLUSH IV FLUSH SCH (08:36)
--- NOTE | 2017-03-08 12:28 | HHI.OB ---
Subjective Remarks PT DELIVERY BY PRIMARY C SECTION APPROX 1 WEEK AGO Objective Objective Remarks GENERAL: Well-nourished, well-developed patient. CARDIOVASCULAR: Regular rate and rhythm without murmurs, gallops, or rubs. RESPIRATORY: Breath sounds equal bilaterally. No accessory muscle use. ABDOMEN/GI: Abdomen soft, non-tender, healing c section scar small area of bruising above incision . . GENITOURINARY: Light bleeding., [place] to bsd EXTREMITIES: No cyanosis, slight bilateral lower extremity edema, non-tender, without signs of DVT. Medications and IVs Current Medications Medications (Trade) Dose Ordered Sig/Martin Route Start Time Stop Time Status Last Admin Lactated Ringer's 1,000 ml @ 75 mls/hr [id number] IV 03/07/17 14:56 03/08/17 08:36 (NS Flush) 2 ml UNSCH PRN IV FLUSH 03/07/17 15:00 (NS Flush) 2 ml BID IV FLUSH 03/07/17 21:00 Magnesium Sulfate 1,000 ml @ 50 mls/hr Q20H IV 03/07/17 14:56 03/07/17 16:39 (Calcium Gluconate Inj) 1 gm UNSCH PRN IV PUSH 03/07/17 15:00 (Tylenol) 650 mg Q4H PRN PO 03/07/17 15:00 03/08/17 08:35 (Zofran Inj) 4 mg Q6H PRN IV PUSH 03/07/17 15:00 (Ambien) 5 mg HS PRN PO 03/07/17 17:30 (Motrin) 600 mg Q6H PRN PO 03/07/17 18:45 (Procardia Xl) 30 mg DAILY PO 03/08/17 09:00 Assessment/Plan Problem List: (1) S/P primary low transverse ICD Codes: Z98.891 - History of uterine scar from previous surgery Status: Acute (2) Severe hypertension ICD Codes: I10 - Essential (primary) hypertension Status: Acute Assessment and Plan pt doing well c/o frontal headache, will treat with tylenol labs wnl current bp's 120's/70's, we will hold procardia Discharge Planning consider dc home today if bp remain stable post magnesium Cynthia Caputo Mar 08, 2017 12:27
[2017-03-08] MEDS: MAGNESIUM SULFATE 40 GM PREMIX 1,000 ML IV SCH (13:46)
[2017-03-08] MEDS ORDERED: NIFE30TA8 PO (18:10)
--- NOTE | 2017-03-08 18:11 | HHI.DCPOC ---
Discharge Care Plan Diagnosis: (1) Severe pre-eclampsia, condition or complication (2) Severe hypertension Report Symptoms to Your Doctor -Temperature above 100.5 degrees -Redness, of incision or excessive or foul smelling drainage -Unusual pain or calf pain -Increased vaginal bleeding -Painful or difficulty urinating -Feelings of extreme sadness or anxiety after 2 weeks Goals to Promote Your Health * To prevent worsening of your condition and complications * To maintain your health at the optimal level Directions to Meet Your Goals Take your medications as prescribed Follow your dietary instruction Follow activity as directed Ensure plenty of rest for recovery Drink fluids for hydration Keep your appointments as scheduled Take your immunizations and boosters as scheduled If your symptoms worsen call your PCP, if no PCP go to Urgent Care Center or Emergency Room Smoking is Dangerous to Your Health. Avoid second hand smoke Call the 24-hour crisis hotline for domestic abuse at Brandy Thomas MD Mar 08, 2017 18:11
== END 2017-03-08 18:45 | disposition home or self-care (01) ==
LOC: HOBED 14:38 → H2EA 15:33
PROVIDERS: ADMIT Obstetrics & Gynecology; ATTEND Obstetrics & Gynecology
DX: O16.5 Unspecified maternal hypertension, complicating the puerperium (principal); O15.2 Eclampsia complicating the puerperium
CPT/HCPCS: 80053; 81001; 84112; 84550; 85027; 96361; 96365; 96366; G0378; J1940; J3475; J7120